=== PATIENT | male | born 1970 | race Hispanic/Latino ===

== ENCOUNTER 2017-05-28 16:39 | Outpatient (CLI) | payer BC ==
--- NOTE | 2017-05-28 17:06 | RAD ---
LEFT KNEE THREE VIEWS: History: Left knee pain and swelling. FINDINGS/IMPRESSION: No acute fracture, dislocation, or bony destruction is seen. Mild degenerative change is present. POS: [facility]
== END 2017-05-28 16:40 | disposition home or self-care (01) ==
LOC: SCSRAD 16:39
PROVIDERS: ATTEND Family Medicine
DX: M25.562 Pain in left knee (principal)